=== PATIENT | female | born 1990 | race Caucasian/White ===

== ENCOUNTER → 2016-12-21 | Outpatient (CLI) | payer BC ==
[~2016-12-21] MED LIST: ACET-749 PO; MTR600X PO; PRENTAB26 PO
== END | disposition home or self-care (01) ==
LOC: C.LABSPEC 18:17
PROVIDERS: ATTEND Obstetrics & Gynecology
DX: Z34.83 Encounter for supervision of other normal pregnancy, third trimester (principal)

== ENCOUNTER 2017-01-05 12:55 | Inpatient (IN) | payer BC ==
[~2017-01-05] VITALS: Ht 167.6 cm; Wt 65.5 kg
[2017-01-05] MEDS ORDERED: LACTATED RINGER'S 1000ML 1,000 ML IV SCH (13:03)
[2017-01-05] MEDS ORDERED: HYDROCORTISONE ACETATE 25 MG SUPP PR PRN (13:45)
[2017-01-05] MEDS ORDERED: SUPERCREAM 0.870 % 15GM JAR EXT PRN (13:45)
[2017-01-05] MEDS ORDERED: LANOLIN OINT EXT PRN ×2 (13:45)
[2017-01-05] MEDS ORDERED: ACETAMINOPHEN/CODEINE 300/30MG TAB PO PRN ×2 (13:45)
[2017-01-05] MEDS ORDERED: BENZOCAINE 20% AER SPR 82.5 GM CAN EXT PRN (13:45)
[2017-01-05] MEDS ORDERED: OXYTOCIN INJ 10 UNITS/ML VIAL IM ONE (13:45)
--- NOTE | 2017-01-05 14:20 | DELIVERY SUMMARY ---
DATE OF OPERATION: 01/05/2017 DATE OF DELIVERY: 01/05/2017. PRE-DELIVERY DIAGNOSES: 1. 26-year-old G3,P2-0-0-2 at 38 week 3 days. 2. Spontaneous labor. 3. Uterine size date discrepancy in the third trimester. POST-DELIVERY DIAGNOSES: Same. PROCEDURE: Spontaneous vaginal delivery. ESTIMATED BLOOD LOSS: 200 mL. FINDINGS: Viable male , Apgars 8 and 9, weight pending. DESCRIPTION OF DELIVERY: The patient presented to labor and delivery in spontaneous labor very uncomfortable. She was initially 8 cm dilated on exam with bulging membranes. Membranes spontaneously ruptured and heart tracing dropped to the 70s for approximately 3 minutes. During this time the patient was instructed to push and she pushed 2 times and spontaneously delivered a viable male from the left occiput anterior position. Head delivered followed by the anterior and then the posterior shoulder followed by the body. No nuchal cord was noted. The cord was doubly clamped and cut. The baby was warmed and stimulated and spontaneous cry was heard. A cord segment was retained for cord gasses. Cord blood was obtained. The placenta then delivered spontaneously intact with a 3-vessel cord. Due to precipitous nature of the patient's delivery an IV was unable to be started prior to delivery, therefore 10 units of Pitocin was given in an IM injection. The cervix, vagina and perineum were inspected and no lacerations were noted. The uterus was firm and excellent hemostasis was observed. The patient and the baby tolerated the delivery well and will be moved to a labor and delivery room for recovery in stable and good condition. All sponge and instrument counts were correct at the conclusion of the delivery. I attest to the content of the Intraoperative Record and any orders documented therein. Any exceptio ns are noted below.
[2017-01-05] MEDS: IBUPROFEN 600 MG TAB PO PRN ×2 (14:26→18:40)
[2017-01-05 15:05] VITALS: Ht 167.6 cm; Wt 65.5 kg
[2017-01-05 15:23] LABS: HEMATOCRIT 36.5 % (37-47); MEAN CELL VOLUME 86.1 fL (80-100); MEAN CORPUSCULAR HEMOGLOBIN 30.7 pg (25-34); MEAN CORPUSCULAR HGB CONC 35.6 g/dl (32-36); MEAN PLATELET VOLUME 11.2 fL (7.4-10.4); PLATELET COUNT 177 K/uL (130-400); RED BLOOD COUNT 4.24 M/uL (4.2-5.4); WHITE BLOOD COUNT 25.92 K/uL (4.8-10.8)
[2017-01-05 16:00] VITALS: BP 117/79; PULSE 72; TEMP 36.9
[2017-01-05 20:00] VITALS: BP 111/74; PULSE 86; TEMP 36.7
[2017-01-05] MEDS: DOCUSATE SODIUM 100 MG CAP PO SCH (20:12)
[2017-01-05 23:00] VITALS: BP 110/70; PULSE 70; TEMP 37
[2017-01-06] MEDS: IBUPROFEN 600 MG TAB PO PRN ×2 (00:53→09:01)
[2017-01-06 04:00] VITALS: BP 110/70; PULSE 77; TEMP 36.9
[2017-01-06 07:30] VITALS: BP 109/71; PULSE 54; TEMP 36.5; O2SAT 100
[2017-01-06 08:07] LABS: HEMATOCRIT 36.9 % (37-47)
--- NOTE | 2017-01-06 08:15 | Progress Note ---
Subjective Jan 06, 2017. Subjective conversation w/ patient, physical exam Ambulation: ambulating normally Voiding: no voiding problems Passing Gas: Yes Diet Tolerance: Regular Diet Lochia: Small Feeding Type: Breast Feeding Review of Systems Constitutional: No chills, No fever Respiratory: No cough, No shortness of breath Cardiac: No chest pain Abdomen: No nausea, No pain, No vomiting Objective Vital Signs Date Time Temp Pulse Resp B/P Pulse Ox O2 Delivery O2 Flow Rate FiO2 01/06/17 04:00 36.9 77 18 110/70 Room Air 01/05/17 23:00 37.0 70 18 110/70 Room Air 01/05/17 23:00 Room Air 01/05/17 20:00 36.7 86 18 111/74 Room Air 01/05/17 16:00 Room Air 01/05/17 16:00 36.9 72 20 117/79 Room Air Physical Exam General Appearance: WELL-APPEARING, NO APPARENT DISTRESS Respiratory/Chest: lungs clear, normal breath sounds Cardiovascular: regular rate, rhythm, no murmur Abdomen: normal bowel sounds, non tender, soft Fundus: Firm, Non-Tender, Relation to Umbilicus (2 cm below) Extremities: non-tender, no calf tenderness Laboratory Results Last 24 Hours Test 01/05/17 15:15 01/06/17 07:55 White Blood Count 25.92 K/uL Red Blood Count 4.24 M/uL Hemoglobin 13.0 g/dL 12.9 g/dL Hematocrit 36.5 % 36.9 % Mean Corpuscular Volume 86.1 fL Mean Corpuscular Hemoglobin 30.7 pg Mean Corpuscular Hemoglobin Concent 35.6 g/dl RDW Standard Deviation 41.6 fL RDW Coefficient of Variation 13.2 % Platelet Count 177 K/uL Mean Platelet Volume 11.2 fL Assessment and Plan Post- Day#: 1 Continue Routine Care: s/p Day 1 - vital signs reviewed and wnl - Hgb reviewed and 12.9 - Blood type: A+, GBS-. Rubella immune - Pt doing well clinically - Encourage ambulation, monitor and control pain with motrin prn, resume regular diet, monitor lochia - Encourage breast feeding - Pt counselled on discharge instructions - PATIENT DISCHARGE TODAY Resident Physician Supervision Note: I was present with Dr. Rojas during the history and exam. I discussed the case with the resident and agree with the findings and plan as documented in the note. Any exceptions or clarifications are listed here: PPD#1, feeling well , requesting discharge home. Discussed discharge instructions. FU 6w. Documented By: Jo Lock
--- NOTE | 2017-01-06 08:16 | Discharge Instructions ---
Discharge Instructions Admission Reason for Admission: Labor Check Discharge Discharge Diagnosis / Problem: Spontaneous Vaginal Delivery Discharge Goals Goal(s): Routine recovery after delivery Medications Continue Dispensed Medications: supercream, dermaplast, tucks, lansinoh Activity Recommendations Activity Limitations: per Instructions/Follow-up section . Instructions / Follow-Up Instructions / Follow-Up ACTIVITY RECOMMENDATIONS: * Gradual return to full activity over the next 2-3 weeks. * No lifting - nothing heavier than baby over the next 2-3 weeks. * Do not engage in vigorous exercise, sexual activity or sports until cleared by your physician. * Do not drive or operate any motorized equipment until cleared by your physician. * You may shower/bathe daily. MEDICATIONS: For discomfort or pain, you may use Acetaminophen (Tylenol), Ibuprofen (Advil), or Naproxen (Aleve) following the package directions. For constipation you may use Colace following the package directions. BREAST CARE: If you are not breast feeding: * Wear a supportive bra 24 hours a day for one to two weeks. * Avoid stimulating your breasts and nipples as much as possible during the first few weeks after delivery. * When taking a shower, have the warm water hit your back, not breasts. * When your breasts feel full, apply ice packs. Usually three to four times a day helps ease the discomfort. * Take a mild pain medication (Tylenol / Motrin) when you are uncomfortable. If breast feeding: * Use breast milk to lubricate nipples. Lansinoh cream may be used for sore nipples. You do not need to remove cream prior to breast feeding. If using a different brand of cream, check the label for directions regarding removal of cream prior to nursing. * Wear a supportive bra. * If having problems with breasts or breast feeding, call a [facility] ad[facility] consultant or your health care provider. EPISIOTOMY CARE: After delivery, if you have an episiotomy (stitches), the following steps will ease discomfort and aid healing. * For the first 24 hours after delivery, place ice packs next to your episiotomy to help reduce swelling. * After the first 24 hour-period, sitz baths, either portable or in the tub, are suggested. A shower with a shower arm sprayed over the episiotomy may be comforting. * Anjali care should be done after each voiding and bowel movement. Squirt warm water from a plastic bottle over the perineum (region of the body between the anus and urinary opening) and pat dry. * Use Dermoplast to ease discomfort. Shake container. [place] directly over the episiotomy. Place a Tucks on a clean sanitary pad next to your episiotomy. SPECIAL CARE INSTRUCTIONS: When you are discharged from the hospital, it is important for you to follow the instructions listed below: * During the first week at home, you should be able to care for yourself and your baby. In addition, the usual light household activities are encouraged. * Limit your activities to the way you feel. Do not try to clean the house or move furniture. Be sensible. * If you actively engage in sports and have done so up until the time of your delivery, you may resume these activities as soon as you feel able. This may take up to one month or even longer. Use good judgment. * Continue to take your vitamins for at least six weeks after the of your baby. * Your diet need not be limited unless you were on a special diet before your delivery. Breast-feeding mothers need around 2500 calories per day and at least 64-80 ounces of fluid per day (8 to 10 glasses). * You should eat foods from the four major food groups. Crash diets or fad diets are to be avoided. Eating lean meats, fresh fruits and vegetables, low-fat dairy products, high fiber foods and a regular exercise program, will help you get back to your pre- weight without putting your health at risk. * Constipation is sometimes a problem after delivery. Take a mild laxative as needed. If breast feeding, Milk of Magnesia is acceptable to use. You may use a suppository or Fleets enema if no episiotomy. * A daily shower or tub bath is suggested. Be sure to thoroughly and gently dry the perineum. * A bloody vaginal discharge will usually continue until around four weeks post . A small amount of bleeding may continue for as long as six weeks. Vaginal discharge changes from the bright red bleeding after delivery to pink then brownish and finally yellowish-pink before becoming white and disappearing. * Bleeding may increase with activity. Your first period may come in 4-8 weeks. If you are breast feeding, your period may be delayed even longer. * [place] (sex) can begin whenever both you and your partner feel comfortable and do not have any form of genital infection. It is recommended that you wait at least six weeks for internal and external healing to occur. If you have questions, please talk to your health care practitioner. A condom should be used to prevent infection and . * Foreplay, gentle intercourse and lubrication is very important the first several times to prevent pain. A water-based lubricant such as K-Y jelly or Astroglide may be used. * If you have RH negative blood and your baby is RH positive, you will receive RHOGAM by injection prior to discharge. The nurse will give you a card to keep with you that has the date and place that you received RHOGAM after delivery. * During your care, you had a Rubella screen done to check for the presence of rubella antibodies in your blood. If your test was negative, you will receive a Rubella vaccine prior to discharge. This vaccine may cause a fever, soreness at the injection site and flu-like symptoms. If these symptoms persist, notify your health care practitioner. is not advised for one month after a Rubella vaccine. * Verbalizes understanding of car seat law as reviewed with patient nursing. * Car Seat hand-out given and reviewed with patient by nursing. * Shaken baby information reviewed with patient by nursing. Call you doctor if: * Heavy bleeding (saturating several pads an hour) or passing clots the size of your fist. * A fever >101 degrees F (38.3 degrees C) on two occasions four hours apart and /or chills. * Unusual pain in the pelvic or vaginal areas. * "Baby Blues" lasting longer than two weeks. If you have any questions or concerns, call your health care practitioner at . FOLLOW UP VISIT: * Please call the office at to schedule a 6 week examination. It is important you keep this appointment. It is important for you to make arrangements for either yearly or twice yearly check-ups thereafter. Current Hospital Diet Patient's current hospital diet: Regular OB Diet Discharge Diet Recommended Diet: Regular OB Diet Pending Studies Studies pending at discharge: no Medical Emergencies . Who to Call and When: Medical Emergencies: If at any time you feel your situation is an emergency, please call 911 immediately. . Non-Emergent Contact Non-Emergency issues call your: Primary Care Provider, Drop Wire Operator . . "Provider Documentation" section prepared by Aiden Rojas. VTE Core Measure Inpt VTE Proph given/why not?: Treatment not indicated
[2017-01-06] MEDS: DOCUSATE SODIUM 100 MG CAP PO SCH (09:00)
[2017-01-06 11:20] VITALS: BP 110/69; PULSE 54; TEMP 36.6; O2SAT 100
[2017-01-06 16:15] VITALS: BP 113/72; PULSE 78; TEMP 36.8; O2SAT 98
[2017-01-06 18:45] VITALS: BP_DIAS 72; PULSE 78; TEMP 36.8
[2017-01-06] MEDS ORDERED: BISACODYL 5 MG TABEC PO SCH (20:00)
== END 2017-01-06 19:00 | disposition home or self-care (01) | DRG 775 ==
LOC: C.OPB 12:55 → C.LD 12:55 → C.OPB 13:04 → C.LD 13:04 → C.OBG 17:19 → EDSTATUS 01-16 12:57
PROVIDERS: ADMIT Obstetrics & Gynecology; ATTEND Obstetrics & Gynecology
PROC: 10E0XZZ Delivery of Products of Conception, External Approach (ICD-10-PCS; principal; 2017-01-05)
DX: O80 Encounter for full-term uncomplicated delivery (principal); Z3A.38 38 weeks gestation of pregnancy; Z37.0 Single live birth

== ENCOUNTER → 2017-10-01 | Outpatient (CLI) | payer BC ==
[2017-10-01 10:31] LABS: CALCULATED INSULIN SENSITIVITY 0.398; GLUCOSE LOG 1.9445; INSULIN FASTING 3.7 mU/L (3-25); INSULIN LOG 0.5682
== END | disposition home or self-care (01) ==
LOC: C.LAB1850 09:11
PROVIDERS: ATTEND Obstetrics & Gynecology
DX: N92.6 Irregular menstruation, unspecified (principal)

== ENCOUNTER → 2017-10-02 | Outpatient (CLI) | payer BC ==
--- NOTE | 2017-10-02 12:44 | DIAGNOSTIC IMAGING REPORT ---
FLUOROSCOPIC GUIDED LEFT HIP ARTHROGRAM FLUOROSCOPY TIME: 3 seconds. HISTORY: Left hip pain.. PROCEDURE: After obtaining written informed consent, the patient was placed supine on the fluoroscopy table. A suitable site for needle insertion was marked using fluoroscopic guidance. The left hip was prepped and draped in the usual sterile fashion. 1% lidocaine was used for skin, subcutaneous and deep soft tissue anesthesia. Under intermittent fluoroscopic guidance, a 22 gauge 3.5 inch spinal needle was inserted into the left hip joint. A total of 14 cc of a mixture of dilute Gadavist and Optiray 300 were injected. The needle was then removed. There were no apparent complications. The patient was transported to MR for further imaging. IMPRESSION: Fluoroscopic-guided left hip arthrogram without immediate complication. Total injected volume was 14 cc. MR portion of the examination will be dictated separately. Electronically signed by: Bruno Dawn M.D. 10/02/2017 12:43 PM Dictated Date/Time: 10/02/2017 12:42 PM
--- NOTE | 2017-10-02 13:06 | DIAGNOSTIC IMAGING REPORT ---
LEFT HIP MRI with INTRA-ARTICULAR CONTRAST HISTORY: LEFT HIP PAIN TECHNIQUE: Multiplanar multisequence MRI of the left hip was performed following the intra-articular injection of contrast. COMPARISON STUDY: Pelvis 09/18/2017. FINDINGS: Mild cortical and subcortical edema within the medial base of the femoral neck immediately proximal to the lesser trochanter. There is also mild adjacent soft tissue edema. These findings are suspicious for stress related changes/developing stress fracture. No acute fracture or dislocation identified this time. The visualized pelvic structures are intact. The labrum demonstrates a normal signal intensity. Cartilage spaces are maintained. IMPRESSION: Mild cortical and subcortical edema within the medial base of the femoral neck immediately proximal to the lesser trochanter. These findings likely represent stress related changes/developing stress fracture. Electronically signed by: Bruno Dawn M.D. 10/02/2017 1:04 PM Dictated Date/Time: 10/02/2017 12:56 PM
== END | disposition home or self-care (01) ==
LOC: C.MRIBC 09:49
PROVIDERS: ATTEND Orthopaedic Surgery
DX: M25.552 Pain in left hip (principal)